=== PATIENT | male | born 1950 | race Asian ===

== ENCOUNTER 2018-10-06 10:49 | Emergency (ER) | payer OTHER ==
[~2018-10-06] VITALS: Ht 167.6 cm; Wt 66.8 kg
[2018-10-06 10:54] VITALS: BP 131/66; Ht 167.6 cm; Wt 66.8 kg
== END 2018-10-06 12:09 | disposition home or self-care (01) ==
LOC: ED 10:49
DX: M75.101 Unspecified rotator cuff tear or rupture of right shoulder, not specified as traumatic (principal); E78.00 Pure hypercholesterolemia, unspecified
CPT/HCPCS: J1885; Q0092

== ENCOUNTER 2019-08-10 14:48 | Emergency (ER) | payer OTHER ==
[~2019-08-10] VITALS: Ht 157.5 cm; Wt 64.4 kg
[2019-08-10 19:32] VITALS: BP 140/80
== END 2019-08-10 19:59 | disposition home or self-care (01) ==
LOC: ED 14:48
DX: N50.82 Scrotal pain (principal); N43.3 Hydrocele, unspecified; N50.811 Right testicular pain; E78.00 Pure hypercholesterolemia, unspecified; M10.9 Gout, unspecified
CPT/HCPCS: Q0092

== ENCOUNTER 2019-10-14 05:32 | Emergency (ER) | payer OTHER ==
[~2019-10-14] VITALS: Ht 157.5 cm; Wt 63.5 kg
[2019-10-14 05:37] VITALS: BP 126/71; Ht 157.5 cm; Wt 63.5 kg
== END 2019-10-14 06:55 | disposition home or self-care (01) ==
LOC: ED 05:32
DX: M10.041 Idiopathic gout, right hand (principal); E78.00 Pure hypercholesterolemia, unspecified
CPT/HCPCS: J1885